=== PATIENT | female | born 1980 | race Caucasian/White ===

== ENCOUNTER 2017-12-15 09:15 | Day surgery (SDC) | payer BC ==
--- OUTSIDE RECORDS SUMMARY | 2017-12-15 09:16 | XMS REPORT | Continuity of Care Document ---
:1980 Author Organization Interface Problems Problem Status Onset Date Classification Date Comments Source Reported Medications Medication Details Route Status Patient Ordering Order Source Instructions Provider Date Allergies, Adverse Reactions, Alerts Substance Category Reaction Severity Reaction Status Date Comments Source type Reported Immunizations Immunization Date Given Site Status Last Updated Comments Source Results Order Results Value Reference Date Interpretation Comments Source Name Range Vital Signs Vital Sign Value Date Comments Source Encounters Location Location Encounter Encounter Reason Attending ADM DC Status Source Details Type Number For Provider Date Date Visit Outpatient [id number] [facility] 11/16 [facility] [place] [facility] [id number] [facility]TE 12/07 [facility] [place] [facility] [id number] [facility] 12/21 [facility] [id number] [facility] 01/07 [facility] [place] Procedures Procedure Code Date Perfomer Comments Source
[2017-12-15 10:05] LABS: Protime INR 1.03
[2017-12-15 10:15] LABS: Platelet Estimate ADEQ
[2017-12-15] MEDS: DIAZEPAM 5 MG TABLET ONE (10:30)
--- NOTE | 2017-12-15 12:58 | RAD REPORT ---
EXAM DESCRIPTION: RAD - Lumbar Puncture For Dx - 12/15/2017 12:33 pm CLINICAL HISTORY: Headache/ ICD H47.10,R51 COMPARISON: None FINDINGS: The risks, benefits and alternatives to the procedure were explained to the patient and in formed consent obtained. The patient was placed prone into the fluoroscopy suite. The skin and subcutaneous tissues were anest hetized with lidocaine. Under fluoroscopic guidance a 22 gauge spinal needle was advanced into the th ecal sac at L2-3 level. Opening pressure 18.5 10 cc of clear CSF was removed and sent to the lab. Patient experienced no immediate complication IMPRESSION: Lumbar puncture with an opening pressure of 18.5
[2017-12-15 13:56] LABS: CSF Glucose 58 mg/dL (40-70)
[2017-12-15 14:16] LABS: Appearance CLEAR (CLEAR); Body Fluid Source CSF; Body Fluid WBC 3 /mm^3; Color of fluid Colorless (COLORLESS); Fluid Total Volume 11.5 ml
== END 2017-12-15 14:45 | disposition home or self-care (01) ==
LOC: RAD 09:15 → EDSTATUS 11:00 → RAD 14:45
PROVIDERS: ATTEND Specialist
PROC: 009U3ZX Drainage of Spinal Canal, Percutaneous Approach, Diagnostic (ICD-10-PCS; principal; 2017-12-15)
PROC: B01BZZZ Fluoroscopy of Spinal Cord (ICD-10-PCS; 2017-12-15)
DX: R51 Headache (principal); R20.2 Paresthesia of skin
CPT/HCPCS: 36415; 77003; 82945; 84157; 85049; 85610; 85730; 87070; 89050